=== PATIENT | female | born 1950 | race Hispanic/Latino ===

== ENCOUNTER 2016-11-22 06:03 | Day surgery (SDC) | payer MEDICARE, OTHER ==
[2016-11-22 10:09] VITALS: BMI 24.0
[2016-11-22 11:00] VITALS: TEMP 97
[2016-11-22] MEDS ORDERED: Propofol 10 mg/ml Inj (20 ML) ONE ×2 (11:34→12:09)
[2016-11-22] MEDS ORDERED: Lidocaine Hydrochloride 5 ML INJ ONE (11:39)
[2016-11-22] MEDS ORDERED: Lactated Ringer's 500 ML IV SCH (12:00)
[2016-11-22 14:16] VITALS: O2SAT 98
[2016-11-22 14:19] VITALS: BP 144/75; PULSE 80; RESP 18
== END 2016-11-22 13:40 | disposition home or self-care (01) ==
LOC: C.ENDO 06:03
PROVIDERS: ATTEND Internal Medicine Gastroenterology
DX: K29.70 Gastritis, unspecified, without bleeding (principal); K44.0 Diaphragmatic hernia with obstruction, without gangrene; K57.90 Diverticulosis of intestine, part unspecified, without perforation or abscess without bleeding; K64.8 Other hemorrhoids; D12.5 Benign neoplasm of sigmoid colon
CPT/HCPCS: 43239; 45388; 88305; 88313; 88342; J2704; J7040; J7120